=== PATIENT | male | born 1985 | race Two or more races ===

== ENCOUNTER 2023-02-02 12:27 | Emergency (ER) | payer MEDICAID ==
[~2023-02-02] VITALS: Ht 177.8 cm; Wt 90.9 kg
[2023-02-02] MEDS ORDERED: TETANUS-DIPTH-ACEL PERTUSSIS 0.5ML SYR Tdap IM ONE (12:45)
[2023-02-02 13:13] VITALS: PULSE 89; RESP 16; O2SAT 96
[2023-02-02 13:22] VITALS: BP 123/83; PULSE 103; RESP 16; TEMP 98.8; O2SAT 96
[2023-02-02] MEDS ORDERED: ACETAMINOPHEN 500 MG TAB PO ONE ×2 (14:08→14:15)
== END 2023-02-02 14:31 | disposition home or self-care (01) ==
LOC: EDBD 12:27 → ER 12:27
DX: S30.811A Abrasion of abdominal wall, initial encounter (principal); W34.09XA Accidental discharge from other specified firearms, initial encounter; Y93.I9 Activity, other involving external motion; Y92.89 Other specified places as the place of occurrence of the external cause; Y99.8 Other external cause status
CPT/HCPCS: 71045; 74018; 90471; 90715

== ENCOUNTER 2023-07-25 12:55 | Emergency (ER) | payer MEDICAID ==
[~2023-07-25] VITALS: Ht 177.8 cm; Wt 112.0 kg
[2023-07-25] MEDS ORDERED: ACETAMINOPHEN 500 MG TAB PO ONE (13:45)
[2023-07-25 14:45] VITALS: BP 151/82; PULSE 134; RESP 20; O2SAT 98
[2023-07-25] MEDS ORDERED: cefTRIAXone SOD 1,000 MG VL IM ONE (14:45)
[2023-07-25 15:17] VITALS: TEMP 102.9
[2023-07-25] MEDS ORDERED: AZIT500T66 PO (15:18)
[2023-07-25] MEDS ORDERED: IBUP-1456 PO (15:18)
[2023-07-25] MEDS ORDERED: PROM1SOL4 PO (15:18)
== END 2023-07-25 15:22 | disposition home or self-care (01) ==
LOC: ER 12:55
DX: J03.90 Acute tonsillitis, unspecified (principal); J20.9 Acute bronchitis, unspecified; F17.210 Nicotine dependence, cigarettes, uncomplicated
CPT/HCPCS: 71045; 96372; 99283; J0696

== ENCOUNTER 2023-11-19 04:38 | Inpatient (IN) | payer SELFPAY ==
[~2023-11-19] VITALS: Ht 172.7 cm; Wt 106.4 kg
[~2023-11-19 04:38] MED LIST: AZIT500T66 PO; IBUP-1456 PO; PROM1SOL4 PO
[2023-11-19] MEDS: NALOXONE HCL 0.4 MG/ML VIAL IV ONE (05:47)
[2023-11-19 06:19] LABS: Basophils # (auto) 0 10 ^3/uL (0-0.2); Basophils % (auto) 0.2 % (0.0-2.0); Eosinophils # (auto) 0 10 ^3/uL (0-0.8); Eosinophils % (auto) 0.3 % (0.0-7.0); Hematocrit 43.8 % (41.0-53.0); Hemoglobin 14.9 g/dL (13.5-17.5); Lymphocytes # (auto) 1.9 10 ^3/uL (0.4-5.4); Lymphocytes % (auto) 17.7 % (10.0-50.0); Mean Corpuscular Hemoglobin 31.6 pg (28.0-32.0); Monocytes # (auto) 0.8 10 ^3/uL (0-1.3); Monocytes % (auto) 7.5 % (0.0-12.0); Neutrophils # (auto) 7.9 10 ^3/uL (1.6-8.6); Neutrophils % (auto) 74.3 % (37.0-80.0); Red Blood Cells 4.71 10^6/uL (4.5-5.90); Red Cell Distribution Width 12.7 % (11.8-14.3); White Blood Cell 10.7 10^3/uL (4.4-10.8)
[2023-11-19 06:35] LABS: Alanine Aminotransferase 60 U/L (7-40); Alkaline Phosphatase 88 U/L (46-116); Aspartate Aminotransferase 63 U/L (13-40); BUN/Creatinine Ratio 13.5 (10.0-20.0); Bilirubin, Total 0.7 mg/dL (0.2-1.0); Blood Urea Nitrogen 13 mg/dL (9-23); Glucose 111 mg/dL (74-106); Total Protein 6.8 g/dL (5.7-8.2)
[2023-11-19 06:39] LABS: Chloride 107 mmol/L (98-107); Potassium 3.7 mmol/L (3.5-5.1); Sodium 140 mmol/L (136-145)
[2023-11-19 06:42] LABS: Anion Gap 6 (5-15); Carbon Dioxide 27 mmol/L (20-30)
[2023-11-19 06:52] LABS: Blood Alcohol < 3.0 mg/dL (<10)
[2023-11-19 07:30] VITALS: PULSE 95; RESP 17; O2SAT 100
[2023-11-19 07:45] LABS: Acetaminophen < 2.0 UG/ML (10.0-20.0); Salicylate < 3.0 mg/dL (2.8-20.0)
[2023-11-19 09:50] LABS: Urine Bacteria None Seen /hpf (None Seen)
[2023-11-19 09:58] LABS: Urine Blood 1+ /uL (Negative); Urine Clarity Clear (Clear); Urine Color Light-Yellow (Yellow); Urine Protein, UAD Negative (Negative); Urine Specific Gravity 1.016 (1.001-1.035); Urine Urobilinogen Normal (Negative); Urine WBC 1 /hpf (0 - 3)
[2023-11-19 10:12] LABS: Amphetamine Screen, Urine Pos (NEGATIVE); Barbiturate Scree,Urine Neg (NEGATIVE)
[2023-11-19 10:15] LABS: Benzodiazephine Screen, Urine Neg (NEGATIVE); Cannabinoid Screen, Urine Neg (NEGATIVE); Cocaine Screen, Urine Neg (NEGATIVE); Opiate Scree,Urine Neg (NEGATIVE); Phencyclidine Screen, Urine Neg (NEGATIVE)
[2023-11-19] MEDS ORDERED: NALOXONE HCL 0.4 MG/ML VIAL IV PRN (10:45)
[2023-11-19] MEDS ORDERED: DOCUSATE SOD 100 MG CAP PO PRN (10:45)
[2023-11-19] MEDS ORDERED: ONDANSETRON HCL 4 MG/2 ML VIAL IV PRN (10:45)
[2023-11-19] MEDS: SODIUM CHLORIDE 0.9% 1,000 ML IV SCH (11:01)
[2023-11-19 12:22] LABS: Albumin 4.3 g/dL (3.2-4.8); Bilirubin, Direct 0.4 mg/dL (<0.3); Bilirubin, Total 1.1 mg/dL (0.2-1.0); Total Protein 6.9 g/dL (5.7-8.2)
[2023-11-19 19:15] LABS: Base Excess 0.2 mmol/L (-2.0-2.0)
[2023-11-19 19:30] VITALS: PULSE 95; RESP 14; O2SAT 95
[2023-11-20 04:05] LABS: Basophils # (auto) 0 10 ^3/uL (0-0.2); Basophils % (auto) 0.1 % (0.0-2.0); Eosinophils # (auto) 0 10 ^3/uL (0-0.8); Eosinophils % (auto) 0.1 % (0.0-7.0); Hematocrit 46.3 % (41.0-53.0); Hemoglobin 15.9 g/dL (13.5-17.5); Lymphocytes # (auto) 1.7 10 ^3/uL (0.4-5.4); Lymphocytes % (auto) 9.2 % (10.0-50.0); Mean Corpuscular Hemoglobin 32.2 pg (28.0-32.0); Mean Corpuscular Hgb Conc. 34.2 g/dL (32.0-36.0); Mean Corpuscular Volume 94.2 fL (80.0-100.0); Monocytes # (auto) 1.2 10 ^3/uL (0-1.3); Monocytes % (auto) 6.8 % (0.0-12.0); Neutrophils # (auto) 15.3 10 ^3/uL (1.6-8.6); Neutrophils % (auto) 83.8 % (37.0-80.0); Red Blood Cells 4.92 10^6/uL (4.5-5.90); Red Cell Distribution Width 12.8 % (11.8-14.3); White Blood Cell 18.2 10^3/uL (4.4-10.8)
[2023-11-20 04:29] LABS: Alanine Aminotransferase 46 U/L (7-40); Alkaline Phosphatase 91 U/L (46-116); Anion Gap 6 (5-15); BUN/Creatinine Ratio 6.8 (10.0-20.0); Blood Urea Nitrogen 7 mg/dL (9-23); Calcium 9.4 mg/dL (8.5-10.1); Carbon Dioxide 28 mmol/L (20-30); Chloride 104 mmol/L (98-107); Glucose 121 mg/dL (74-106); Sodium 138 mmol/L (136-145)
[2023-11-20 04:30] LABS: Albumin 4.3 g/dL (3.2-4.8); Aspartate Aminotransferase 34 U/L (13-40)
[2023-11-20 04:31] LABS: Bilirubin, Total 1.3 mg/dL (0.2-1.0); Total Protein 7.2 g/dL (5.7-8.2)
[2023-11-20 08:22] VITALS: PULSE 119; RESP 20; O2SAT 96
[2023-11-20] MEDS: ACETAMINOPHEN 500 MG TAB PO PRN (16:51)
[2023-11-20 19:30] VITALS: PULSE 119; RESP 16; O2SAT 98
[2023-11-21 00:35] VITALS: BP 120/91; PULSE 111; RESP 21; TEMP 98.7; O2SAT 93
[2023-11-21 00:51] VITALS: BP 120/91; PULSE 111; RESP 21; TEMP 98.7; O2SAT 93
[2023-11-21] MEDS ORDERED: HYDR-3682 PO (01:47)
[2023-11-21] MEDS ORDERED: OLAN1TAB7 PO (01:47)
[2023-11-21 05:00] VITALS: BP 138/86; PULSE 94; RESP 20; TEMP 97.8; O2SAT 92
[2023-11-21 06:53] LABS: Basophils # (auto) 0 10 ^3/uL (0-0.2); Basophils % (auto) 0.2 % (0.0-2.0); Eosinophils # (auto) 0.1 10 ^3/uL (0-0.8); Eosinophils % (auto) 1.2 % (0.0-7.0); Hematocrit 46.9 % (41.0-53.0); Hemoglobin 16.2 g/dL (13.5-17.5); Lymphocytes # (auto) 1.7 10 ^3/uL (0.4-5.4); Lymphocytes % (auto) 13.4 % (10.0-50.0); Mean Corpuscular Hemoglobin 32.3 pg (28.0-32.0); Mean Corpuscular Hgb Conc. 34.6 g/dL (32.0-36.0); Mean Corpuscular Volume 93.4 fL (80.0-100.0); Monocytes # (auto) 1.2 10 ^3/uL (0-1.3); Monocytes % (auto) 9.3 % (0.0-12.0); Neutrophils # (auto) 9.5 10 ^3/uL (1.6-8.6); Neutrophils % (auto) 75.9 % (37.0-80.0); Red Blood Cells 5.02 10^6/uL (4.5-5.90); Red Cell Distribution Width 12.6 % (11.8-14.3); White Blood Cell 12.5 10^3/uL (4.4-10.8)
[2023-11-21 07:27] LABS: Alanine Aminotransferase 32 U/L (7-40); Albumin 4.1 g/dL (3.2-4.8); Alkaline Phosphatase 86 U/L (46-116); Anion Gap 9 (5-15); Aspartate Aminotransferase 22 U/L (13-40); BUN/Creatinine Ratio 10.6 (10.0-20.0); Blood Urea Nitrogen 9 mg/dL (9-23); Calcium 9.1 mg/dL (8.7-10.4); Carbon Dioxide 24 mmol/L (20-30); Chloride 103 mmol/L (98-107); Glucose 102 mg/dL (74-106); Magnesium 2.2 mg/dL (1.6-2.6); Potassium 3.6 mmol/L (3.5-5.1); Sodium 136 mmol/L (136-145)
[2023-11-21 07:28] LABS: Bilirubin, Total 0.9 mg/dL (0.2-1.0); Total Protein 7.4 g/dL (5.7-8.2)
[2023-11-21 08:00] VITALS: PULSE 110; PULSE 75; RESP 18; O2SAT 98
[2023-11-21 09:07] VITALS: BP 133/80; PULSE 94; RESP 19; TEMP 98.8; O2SAT 96
== END 2023-11-21 12:10 | disposition left against medical advice (07) | DRG 917 ==
LOC: ER 04:38 → OVERFLOW 10:38 → TELE-WESTW 11-20 23:44
PROVIDERS: ADMIT Internal Medicine Geriatric Medicine; ATTEND Internal Medicine Geriatric Medicine
DX: T50.992A Poisoning by other drugs, medicaments and biological substances, intentional self-harm, initial encounter (principal); G92.9 Unspecified toxic encephalopathy; J96.00 Acute respiratory failure, unspecified whether with hypoxia or hypercapnia; R74.01 Elevation of levels of liver transaminase levels; F17.210 Nicotine dependence, cigarettes, uncomplicated; F31.9 Bipolar disorder, unspecified; F41.9 Anxiety disorder, unspecified; F15.10 Other stimulant abuse, uncomplicated; Z53.29 Procedure and treatment not carried out because of patient's decision for other reasons; Y92.89 Other specified places as the place of occurrence of the external cause
CPT/HCPCS: 36415; 36600; 70450; 71045; 80053; 80076; 80307; 80320; 80329; 81001; 82140; 82805; 82962; 83036; 83605; 83735; 84484; 85025; 87040; 93005; G0378